=== PATIENT | male | born 1990 | race Two or more races ===

== ENCOUNTER 2022-04-02 19:23 | Emergency (ER) | payer MEDICAID, OTHER | END 2022-04-02 21:40 | disposition left against medical advice (07) | LOC: ER 19:23 | DX: T14.90XA Injury, unspecified, initial encounter (principal); Z53.21 Procedure and treatment not carried out due to patient leaving prior to being seen by health care provider; W54.0XXA Bitten by dog, initial encounter; Y93.89 Activity, other specified; Y92.89 Other specified places as the place of occurrence of the external cause; Y99.8 Other external cause status ==